=== PATIENT | male | born 1955 | race Caucasian/White ===

== ENCOUNTER 2017-11-17 21:48 | Emergency (ER) | payer MEDICAID ==
--- NOTE | 2017-11-17 22:07 | EDPHY ---
H & P Time Seen by Provider: 11/17/17 21:53 HPI/ROS: CHIEF COMPLAINT: Right foot infection HISTORY OF PRESENT ILLNESS: 61-year-old male brought here by EMS with complaint of right foot cellulitis. He states he has had ulcer on the bottom of his foot for approximately 3 months. He does not have a group sales manager who is following him. He states that he has a nurse practitioner from the [facility] now living here. He is diabetic. Denies any fever. He does report a prior history of osteomyelitis treated with vancomycin and Zosyn. He cannot specify way year he had osteomyelitis. Review of records from [facility] shows that the patient was discharged today from [facility]. The patient had an extensive workup was seen by both podiatry and Infectious Disease. It was felt that he was unlikely to have acute osteomyelitis. He remained afebrile and had normal white count during his hospital stay. He refused physical therapy evaluation, vascular workup, MRI and even control of his blood sugars with regular insulin dosing.. Ultimately he was placed in a boot and prescribed doxycycline and Augmentin instructed to follow up with his primary care physician of choice. REVIEW OF SYSTEMS: Constitutional: No fever, no chills. Eyes: No discharge. ENT: No sore throat. Cardiovascular: No chest pain, no palpitations. Respiratory: No cough, no shortness of breath. Gastrointestinal: No abdominal pain, no vomiting. Genitourinary: No hematuria. Musculoskeletal: No back pain. Skin: + skin lesion Neurological: No headache. (Quirino Servin) Physical Exam: General Appearance: Alert and no distress. Afebrile nontoxic-appearing Eyes: Pupils equal and round no injection. Respiratory: Chest is nontender, lungs are clear to auscultation. Cardiac: regular rate and rhythm. Gastrointestinal: Abdomen is soft and nontender, no masses, bowel sounds normal. Musculoskeletal: Neck is supple and nontender. Extremities have full range of motion. Evaluation of the right lower extremity reveals erythema extending from the entire foot the distal lower tib-fib region. There is no crepitus or unilateral calf swelling. Pedal pulses are strong. Cap refill less 3 sec in all 5 toes. Does have a grade 2/3 ulcer to the plantar aspect of the midfoot. There is no discharge or area of fluctuance. Patient is able to fully dorsiflex and plantar flex the right ankle. Skin: Erythema to the foot and distal right leg. (Quirino Servin) Constitutional: Initial Vital Signs Temperature (C) 36.7 C 11/17/17 21:48 Heart Rate 89 11/17/17 21:48 Respiratory Rate 16 11/17/17 21:48 Blood Pressure 173/68 H 11/17/17 21:48 O2 Sat (%) 97 11/17/17 21:48 O2 Delivery Mode Room Air Allergies/Adverse Reactions: acetaminophen [From Tylenol] Allergy (Verified 11/17/17 22:11) insulin glargine [From Lantus U-100 Insulin] Allergy (Verified 11/17/17 22:11) Sulfa (Sulfonamide Antibiotics) Allergy (Verified 11/17/17 22:11) Home Medications: Medication Instructions Recorded Humalin 11/17/17 Motrin (*) 11/17/17 Amox Tr/K Clav (Augmentin) 1 each PO BID #20 tab 11/18/17 [Augmentin 500/125 MG TAB (*)] Doxycycline Hyclate 100 mg PO BID #20 tab 11/18/17 Medical Decision Making ED Course/Re-evaluation: Patient is a 61-year-old male here chief complaint of right foot cellulitis and ulcer. On initial evaluation the patient had erythema extending from the foot all the way to the distal lower extremity. There is afebrile nontoxic- appearing with no tachycardia. As he appeared to have an infected ulcer blood cultures and sepsis blood work was ordered in addition to an x-ray to rule out osteomyelitis. The patient was quite rude to the staff here and refused to have an IV placed blood drawn. Additionally he was adamant that he needed IV vancomycin and Zosyn and that the IVP placed in his forearm and no are else. Attempt was made to place an IV in the form but were unsuccessful. I had a discussion with the patient explaining that we need to be able to draw blood and start an IV if he did not allow was to he was refusing treatment. At this time we reviewed his chart and found that he had been discharged from [facility] today and prescribed doxycycline and Augmentin. Discharge summary from today includes extensive details as to patient's refusal of multiple treatment and evaluation modalities including refusal of evaluation by physical therapy, vascular evaluation and MRI. Given that the patient is afebrile and has already been evaluated by Podiatry and Infectious Disease during his admission for she was discharged today will continue the plan to have the patient take Augmentin and doxycycline a follow-up with [facility]. Patient was also seen and evaluated by Dr. Esparza who also spoke with the patient numerous times and agrees with this plan for outpatient treatment. ( Quirino Servin) Differential Diagnosis: Osteomyelitis, sepsis, necrotizing fasciitis, drug-seeking behavior, septic joint (Quirino Servin) Other Provider: I have been involved in this patient's care. This is extremely difficult patient who is refusing multiple treatments and recommendations here. He is refusing to have an IV placed anywhere other than his forearm. He refuses the wrist or the antecubital space. He is refusing lay in bed. He is insisting that he only get IV antibiotics and be admitted for this. I have reviewed his records in [facility]. The patient was discharged from [facility] earlier today with prescriptions for oral antibiotics. During that admission he refused MRI. He had a normal white count. Had a normal CRP. He was seen by both Infectious Disease and Podiatry. They did not feel he had osteomyelitis in a recommended he be treated with oral antibiotics. There is also noted that during that admission he was very difficult noncompliant with a recommend care. He refused to take the prescriptions for the Augmentin and doxycycline that they prescribed. I had a long conversation with him here. He states that he is not certain if he will be willing to be compliant with our therapies or not. He is insisting that he needs intravenous vancomycin. I have explained to him that he has been seen by infectious disease and podiatry experts at the other hospital earlier today, his white count is normal, his CRP is normal. They do not feel that he has osteomyelitis at this time. They feel that oral antibiotics are appropriate. I have offered him prescriptions for Augmentin and doxycycline. Patient states he refuses to take these. He is declining any other further therapies that we are offering. He was escorted out of the premise S. It is to be noted that during his emergency department visit the patient was very rude and belligerent, insulting to staff and noncompliant with evaluation. (Quirino Esparza) Departure - Departure Disposition: Home, Routine, Self-Care Clinical Impression: Foot ulcer, Cellulitis of foot Condition: Good Instructions: Cellulitis (ED), Diabetic Foot Ulcers (ED) Additional Instructions: A prescribing it to antibiotics which are Augmentin and doxycycline. Please take these as directed until you have completed the entire course. In the meantime please call and schedule appointment with a primary care physician. I am providing the number for [facility] which is excellent placed to follow up and coordinate your care. Will need further workup and evaluation if your symptoms are not improving. Additionally he was Clinic in order wound care and refer you to other specialists including podiatry or orthopedics as needed. Developed worsening symptoms as fever, worsening pain, spreading redness or other worrisome symptoms return to the ER for further evaluation. Referrals: Patient,NotPresent [Unknown] - As per Instructions Prescriptions: Amox Tr/K Clav (Augmentin) [Augmentin 500/125 MG TAB (*)] 1 each PO BID #20 tab Doxycycline Hyclate 100 mg PO BID #20 tab
[2017-11-18 01:01] VITALS: BP 186/84
== END 2017-11-18 01:22 | disposition home or self-care (01) ==
DX: L97.519 Non-pressure chronic ulcer of other part of right foot with unspecified severity (principal); L03.115 Cellulitis of right lower limb